=== PATIENT | male | born 1975 | race Caucasian/White ===

== ENCOUNTER 2017-10-19 10:55 | Emergency (ER) | payer BC ==
[2017-10-19] MEDS ORDERED: Sodium Chloride 0.9% 10 ML Syringe FLUSH PRN ×2 (12:02→12:08)
[2017-10-19] MEDS ORDERED: Sodium Chloride 0.9% 1,000 ML IV ONE (12:02)
[2017-10-19] MEDS ORDERED: methylPREDNISolone Sodium Succinate 125 MG/2 ML SDV IVPUSH ONE (12:05)
[2017-10-19] MEDS ORDERED: Iopamidol 612 MG/ML 100 ML Bottle IVPUSH ONE (12:08)
[2017-10-19] MEDS ORDERED: Ampicillin/Sulbactam Na 3 GM in Sodium Chloride 0.9% 100 ML IV ONE (12:11)
[2017-10-19] MEDS ORDERED: HYDROmorphone 0.5 MG/0.5 ML SYRINGE IVPUSH ONE (12:29)
--- NOTE | 2017-10-19 12:29 | EDM.PDOC ---
ED HPI GENERAL MEDICAL PROBLEM - General Chief Complaint: ENT Problem Stated Complaint: SORE THROAT Time Seen by Provider: 10/19/17 11:23 Source of Information: Reports: Patient History Limitations: Reports: No Limitations - History of Present Illness INITIAL COMMENTS - FREE TEXT/NARRATIVE: 42-year-old male presents for evaluation and treatment of a sore throat. reports that he had a sore throat for the last 2 months. States that dry foods seem to make the swelling worse. He reports on Wednesday he went to the clinic. He was started on clindamycin q6 x 10days. Reports associated symptoms of fatigue, ear pain, headache and jaw pain. No fevers, chills, cough or chest congestion. Reports he had an elevated temp of 100.3 Wednesday. No recent ill contacts. Patient is not a diabetic and denies any chronic underlying medical conditions. Patient smokes one half pack per day. Throat Pain Score (Numeric/FACES): 5 - Related Data Allergies Allergy/AdvReac Type Severity Reaction Status Date / Time No Known Allergies Allergy Verified 10/19/17 11:03 Home Meds: Home Meds . [No Known Home Meds] 10/19/17 [History] Past Medical History - Past Health History Medical/Surgical History: Denies Medical/Surgical History Social & Family History - Family History Family Medical History: Noncontributory Oncologic: Reports: Lung - Tobacco Use Smoking Status *Q: Current Every Day Smoker Years of Tobacco use: 26 Packs/Tins Daily: 0.5 - Caffeine Use Caffeine Use: Reports: Coffee, Energy Drinks, Soda, Tea - Recreational Drug Use Recreational Drug Use: No ED ROS ENT - Review of Systems Review Of Systems: See Below Constitutional: Reports: Fatigue. Denies: Fever, Chills HEENT: Reports: Ear Pain, Throat Pain ED EXAM, ENT - Physical Exam Exam: See Below Exam Limited By: No Limitations General Appearance: Alert, WD/WN, No Apparent Distress Eye Exam: Bilateral Eye: Normal Inspection Ears: Normal External Exam, Normal Canal, Hearing Grossly Normal, TM Erythema ( left) Nose: Normal Inspection Mouth/Throat: Normal Inspection, Normal Lips, Muffled Voice, Peritonsillar Mass (left), Pharyngeal Erythema, Tonsillar Erythema, Other (poor dentition; uvula swelling). No: Tonsillar Exudates Neck: Normal Inspection, Lymphadenopathy (L), Lymphadenopathy (R) Respiratory/Chest: No Respiratory Distress, Lungs Clear, Normal Breath Sounds Cardiovascular: Normal Peripheral Pulses, Regular Rate, Rhythm, No Murmur Neurological: Alert, Oriented, Normal Cognition Psychiatric: Normal Affect, Normal Mood Skin: Warm, Dry, Normal Color Course - Vital Signs Last Recorded V/S: Last Vital Signs Temp 36.4 C 10/19/17 13:12 Pulse 85 10/19/17 13:12 Resp 18 10/19/17 13:12 BP 123/86 10/19/17 13:12 Pulse Ox 97 10/19/17 13:12 - Orders/Labs/Meds Orders: Active Orders 24 hr Category Date Time Status Peripheral IV Care [RC] . DIRECTED Care 10/19/17 12:03 Active CULTURE STREP A CONFIRMATION [] Stat Lab 10/19/17 11:39 Results STREP SCRN A RAPID W CULT CONF [] Stat Lab 10/19/17 11:39 Results Sodium Chloride 0.9% [Saline Flush] Med 10/19/17 12:02 Active 10 ml FLUSH ASDIRECTED PRN Sodium Chloride 0.9% [Saline Flush] Med 10/19/17 12:08 Active 10 ml FLUSH ONETIME PRN Peripheral IV Insertion Adult [OM.PC] Routine Oth 10/19/17 12:02 Ordered Medication Orders Sodium Chloride (Saline Flush) 10 ml FLUSH ASDIRECTED PRN PRN Reason: Keep Vein Open Last Admin: 10/19/17 12:16 Dose: 10 ml Sodium Chloride (Saline Flush) 10 ml FLUSH ONETIME PRN PRN Reason: IV FLUSH Last Admin: 10/19/17 12:36 Dose: 10 ml Labs: Laboratory Tests 10/19/17 10/19/17 Range/Units 12:08 12:08 WBC 9.17 H (4.23-9.07) K/mm3 RBC 4.93 (4.63-6.08) M/mm3 Hgb 14.9 (13.7-17.5) gm/L Hct 43.9 (40.1-51.0) % MCV 89.0 (79.0-92.2) fl MCH 30.2 (25.7-32.2) pg MCHC 33.9 (32.2-35.5) g/dl RDW Std Deviation 42.1 (35.1-43.9) fL Plt Count 280 (163-337) K/mm3 MPV 9.6 (9.4-12.3) fl Neutrophils % (Manual) 62 H (40-60) % Band Neutrophils % 0 (0-10) % Lymphocytes % (Manual) 32 (20-40) % Atypical Lymphs % 0 % Monocytes % (Manual) 5 (2-10) % Eosinophils % (Manual) 1 (0.8-7.0) % Basophils % (Manual) 0 L (0.2-1.2) Platelet Estimate Adequate RBC Morph Comment Normal Sodium 142 (136-145) mEq/L Potassium 4.0 (3.5-5.1) mEq/L Chloride 103 (98-107) mEq/L Carbon Dioxide 26 (21-32) mEq/L Anion Gap 17.0 H (5-15) BUN 12 (7-18) mg/dL Creatinine 0.9 (0.7-1.3) mg/dL Est Cr Clr Drug Dosing 130.40 mL/min Estimated GFR (MDRD) > 60 (>60) mL/min BUN/Creatinine Ratio 13.3 L (14-18) Glucose 90 (74-106) mg/dL Calcium 9.0 (8.5-10.1) mg/dL Total Bilirubin 0.5 (0.2-1.0) mg/dL AST 18 (15-37) U/L ALT 38 (16-63) U/L Alkaline Phosphatase 84 (46-116) U/L C-Reactive Protein 4.7 H* (<1.0) mg/dL Total Protein 8.2 (6.4-8.2) g/dl Albumin 4.2 (3.4-5.0) g/dl Globulin 4.0 gm/dL Albumin/Globulin Ratio 1.1 (1-2) Meds: Medications Generic Name Dose Route Start Last Admin Trade Name Freq PRN Reason Stop Dose Admin Sodium Chloride 10 ml 10/19/17 12:02 10/19/17 12:16 Saline Flush FLUSH 10 ml ASDIRECTED PRN Administration Keep Vein Open Sodium Chloride 10 ml 10/19/17 12:08 10/19/17 12:36 Saline Flush FLUSH 10 ml ONETIME PRN Administration IV FLUSH Discontinued Medications Generic Name Dose Route Start Last Admin Trade Name Freq PRN Reason Stop Dose Admin Hydromorphone HCl 0.5 mg 10/19/17 12:29 10/19/17 12:53 Dilaudid IVPUSH 10/19/17 12:30 0.5 mg ONETIME ONE Administration Sodium Chloride 1,000 mls @ 999 mls/hr 10/19/17 12:02 10/19/17 12:15 Normal Saline IV 10/19/17 13:02 999 mls/hr ONETIME ONE Administration Ampicillin Sodium/Sulbactam 100 mls @ 200 mls/hr 10/19/17 12:11 10/19/17 12: 27 Sodium 3 gm/ Sodium Chloride IV 10/19/17 12:40 200 mls/hr ONETIME ONE Administration Iopamidol 80 ml 10/19/17 12:08 10/19/17 12:35 Isovue-300 (61%) IVPUSH 10/19/17 12:09 80 ml ONETIME ONE Administration Methylprednisolone Sodium Succinate 125 mg 10/19/17 12:05 10/19/17 12:16 Solu-Medrol IVPUSH 10/19/17 12:06 125 mg ONETIME ONE Administration - Radiology Interpretation Free Text/Narrative:: CT neck Technique: Multiple axial sections were obtained from above the external auditory canals inferiorly to the lung apices. Intravenous contrast was utilized. Findings: Soft tissue swelling is identified within the left tonsillar region. Low density is noted within this area of soft tissue swelling which is felt compatible with an abscess measuring approximately 3.1 cm. This causes mass effect upon the adjacent hypopharynx pushing it to the right side as well as causing narrowing. Several slightly prominent lymph nodes are seen on the left side most likely on an inflammatory basis from the tonsillar abnormality. Moderate mucosal thickening is seen within the ethmoid sinuses. Mucosal thickening and retention cyst is noted within the left maxillary sinus. Small retention cyst is noted within the right maxillary sinus. Parotid and submandibular salivary glands are normal. Thyroid gland appears within normal limits. Lung apices are clear. Bone window settings were reviewed which appear within normal limits for the patient's age. Epiglottis is normal. Prevertebral soft tissues are normal. Impression: 1. Soft tissue swelling within the left tonsillar region with large abscess also noted within the left tonsillar region measuring 3.1 cm. This abscess causes mass effect and narrowing of the adjacent hypopharynx. 2. Chronic appearing sinus findings as noted above. - Re-Assessments/Exams Free Text/Narrative Re-Assessment/Exam: 10/19/17 13:26 Rapid strep returned negative. I ordered the patient 125 mg IV Solu-Medrol, a liter of fluid and 3 g IV Unasyn. Discussed the labs and imaging with the patient. He requires ENT for drainage. Unfortunately we are unable to do this here in the ER. he requires transfer to [place]. Spoke with Dr. Alejandra come ER physician at [facility] in [place]. He agreed to accept the transfer. Patient will be transported by ambulance with Dr. Justyn greenfield. He will go through the ER. Departure - Departure Time of Disposition: 13:28 Disposition: DC/Tfer to [facility] 02 Condition: Serious Clinical Impression: Peritonsillar abscess - Discharge Information Referrals: PCP,None [Primary Care Provider] - Forms: ED Department Discharge Additional Instructions: Patient to be transported by ground ambulance to [facility] in [place]. Dr. Justyn greenfield. He will go through the ER. - My Orders Last 24 Hours: My Active Orders 10/19/17 11:39 CULTURE STREP A CONFIRMATION [RM] Stat STREP SCRN A RAPID W CULT CONF [RM] Stat 10/19/17 12:02 Sodium Chloride 0.9% [Saline Flush] 10 ml FLUSH ASDIRECTED PRN Peripheral IV Insertion Adult [OM.PC] Routine 10/19/17 12:03 Peripheral IV Care [RC] . DIRECTED 10/19/17 12:08 Sodium Chloride 0.9% [Saline Flush] 10 ml FLUSH ONETIME PRN - Assessment/Plan Last 24 Hours: My Active Orders 10/19/17 11:39 CULTURE STREP A CONFIRMATION [RM] Stat STREP SCRN A RAPID W CULT CONF [RM] Stat 10/19/17 12:02 Sodium Chloride 0.9% [Saline Flush] 10 ml FLUSH ASDIRECTED PRN Peripheral IV Insertion Adult [OM.PC] Routine 10/19/17 12:03 Peripheral IV Care [RC] . DIRECTED 10/19/17 12:08 Sodium Chloride 0.9% [Saline Flush] 10 ml FLUSH ONETIME PRN
--- NOTE | 2017-10-19 12:54 | CT ---
CT neck Technique: Multiple axial sections were obtained from above the external auditory canals inferiorly to the lung apices. Intravenous contrast was utilized. Findings: Soft tissue swelling is identified within the left tonsillar region. Low density is noted within this area of soft tissue swelling which is felt compatible with an abscess measuring approximately 3.1 cm. This causes mass effect upon the adjacent hypopharynx pushing it to the right side as well as causing narrowing. Several slightly prominent lymph nodes are seen on the left side most likely on an inflammatory basis from the tonsillar abnormality. Moderate mucosal thickening is seen within the ethmoid sinuses. Mucosal thickening and retention cyst is noted within the left maxillary sinus. Small retention cyst is noted within the right maxillary sinus. Parotid and submandibular salivary glands are normal. Thyroid gland appears within normal limits. Lung apices are clear. Bone window settings were reviewed which appear within normal limits for the patient's age. Epiglottis is normal. Prevertebral soft tissues are normal. Impression: 1. Soft tissue swelling within the left tonsillar region with large abscess also noted within the left tonsillar region measuring 3.1 cm. This abscess causes mass effect and narrowing of the adjacent hypopharynx. 2. Chronic appearing sinus findings as noted above. Diagnostic code #5
== END 2017-10-19 13:33 ==
LOC: JD.ED 10:55
DX: J36 Peritonsillar abscess (principal); F17.210 Nicotine dependence, cigarettes, uncomplicated
CPT/HCPCS: 36415; 70491; 80053; 85025; 86140; 87081; 87430; 96365; 96375; 99285; J0295; J1170; J2930; J7030; J7040; J7050; Q9967; 99284